=== PATIENT | male | born 1970 | race Caucasian/White ===

== ENCOUNTER 2020-07-31 21:49 | Inpatient (IN) | payer OTHER, SELFPAY ==
[~2020-07-31] VITALS: Ht 190.5 cm; Wt 89.8 kg
--- NOTE | 2020-07-31 21:49 | NUR ---
PT TAKEN TO BED 3 VIA RNEY.
[2020-07-31 21:53] VITALS: BP 127/82
--- NOTE | 2020-07-31 21:53 | NUR ---
50 Y/O MALE BIBA FROM [facility] FOR L SIDED CHEST PAIN SINCE 5PM. PER PT TOOK NITRO 3 TABS @ 7PM WITH NO RELIEF. PT STATES 9/10 SHARP PAIN. DENIES SOB, FEVER, COUGH. MEDHX: HTN, SCHIZOPHRENIA, BIPOLAR, L AKA ALLERGIES: PENICILLIN, COEDINE, SULFA DRUGS, OPIODS
--- NOTE | 2020-07-31 21:59 | NUR ---
EKG BEING PERFORMED AT BEDSIDE. PT PLACED ON CARIDAC MONTIOR.
--- NOTE | 2020-07-31 22:05 | NUR ---
LAB AT BEDSIDE.
[2020-07-31] MEDS ORDERED: ASPIRIN 325 MG TAB ONE (22:09)
[2020-07-31] MEDS ORDERED: ASPIRIN 325 MG TAB PO ONE (22:10)
--- NOTE | 2020-07-31 22:20 | NUR ---
Right forearm 18g initiated and flushable. tolerated well.
[2020-07-31 22:24] LABS: BASOPHILS # (AUTO) 0.2 K/uL (0.00-0.22); BASOPHILS % (AUTO) 1.5 % (0.0-2.0); EOSINOPHILS # (AUTO) 0.8 K/uL (0-0.4); EOSINOPHILS % (AUTO) 7.9 % (0.0-4.0); HEMATOCRIT 37.5 % (36-52); HEMOGLOBIN 12.5 g/dL (12.0-18.0); LYMPHOCYTES # (AUTO) 2.9 K/uL (2.0-11.5); LYMPHOCYTES % (AUTO) 27.1 % (20.5-51.1); MEAN CORPUSCULAR HEMOGLOBIN 27 pg (27-31); MEAN CORPUSCULAR HGB CONC 33 g/dL (33-37); MEAN CORPUSCULAR VOLUME 80.8 fL (80-94); MONOCYTES # (AUTO) 0.9 K/uL (0.8-1.0); MONOCYTES % (AUTO) 8.5 % (1.7-9.3); NEUTROPHILS # (AUTO) 5.8 K/uL (1.8-7.7); PLATELET COUNT (AUTO) 260 K/uL (140-450); RED BLOOD CELL COUNT(AUTO) 4.64 MIL/uL (4.20-6.10); RED CELL DISTRIBUTION WIDTH 17.2 % (11.6-13.7); WHITE BLOOD COUNT (AUTO) 10.6 K/uL (4.8-10.8)
[2020-07-31 22:45] LABS: ALBUMIN 3.5 g/dL (3.4-5.0); ANION GAP 12.6 (8-16); CARBON DIOXIDE 27.5 mmol/L (21-32); POTASSIUM 4.1 mmol/L (3.5-5.1); TOTAL BILIRUBIN 0.2 mg/dL (0.0-1.0)
--- NOTE | 2020-07-31 22:45 | NUR ---
ERMD AT BEDSIDE EVALUATING PT
[2020-07-31] MEDS ORDERED: MORPHINE SULFATE 4 MG/ML SYR IVP STA (22:46)
--- NOTE | 2020-07-31 22:57 | NUR ---
PT STATES HE FEELS NAUSEATED AND DEHYDRATED, ERMD MADE AWARE.
[2020-07-31 23:02] LABS: PROTHROMBIN TIME 9.9 secs (10.8-13.4)
[2020-07-31] MEDS ORDERED: NACL 0.9% 1,000 ML IV ONE (23:10)
[2020-07-31] MEDS ORDERED: ONDANSETRON 4 MG/2 ML VIAL IVP PRN (23:10)
[2020-07-31] MEDS ORDERED: ONDANSETRON 4 MG/2 ML VIAL ONE (23:13)
--- NOTE | 2020-07-31 23:37 | NUR ---
NADEEN SWAB DONE AND SENT TO LAB
[2020-07-31] MEDS ORDERED: DOCU-299 PO (23:55)
[2020-07-31] MEDS ORDERED: [UNRECOGNIZED DRUG - CODE] PO (23:55)
[2020-07-31] MEDS ORDERED: GLYC15SO12 OP (23:55)
[2020-07-31] MEDS ORDERED: METO-485 PO (23:55)
[2020-07-31] MEDS ORDERED: HYDR-3233 PO (23:55)
[2020-07-31] MEDS ORDERED: LORA-476 PO (23:55)
[2020-07-31] MEDS ORDERED: NITR0.4T2 SL (23:55)
[2020-07-31] MEDS ORDERED: OLAN15TA1 PO (23:55)
[2020-07-31] MEDS ORDERED: ACET-2619 PO (23:55)
[2020-07-31] MEDS ORDERED: ESCI10TA PO (23:55)
[2020-07-31] MEDS ORDERED: PANT40EC PO (23:55)
[2020-07-31] MEDS ORDERED: BISA5TAB79 PO (23:55)
--- NOTE | 2020-08-01 01:03 | NUR ---
PT RESTING IN BED, RESPIRATIONS EVEN AND UNLABORED, CHEST RISE IS SYMMETRICAL. WILL CONTINUE TO MONITOR.
--- NOTE | 2020-08-01 01:32 | NUR ---
pt continually pacing up and down in bed stating " My pain is getting bad, I need something for the pain". stated to pt that scheduled meds will be administered when due.
[2020-08-01] MEDS: MORPHINE SULFATE 2 MG/ML SYR IVP PRN ×3 (02:00→18:03)
--- NOTE | 2020-08-01 03:07 | NUR ---
PT RESTING IN BED, RESPIRATIONS EVEN AND UNLABORED, CHEST RISE IS SYMMETRICAL. WILL CONTINUE TO MONITOR.
--- NOTE | 2020-08-01 05:43 | NUR ---
PT RESTING IN BED, RESPIRATIONS EVEN AND UNLABORED, CHEST RISE IS SYMMETRICAL. WILL CONTINUE TO MONITOR.
[2020-08-01 06:00] LABS: BASOPHILS # (AUTO) 0.1 K/uL (0.00-0.22); BASOPHILS % (AUTO) 1.3 % (0.0-2.0); EOSINOPHILS # (AUTO) 0.6 K/uL (0-0.4); EOSINOPHILS % (AUTO) 8.7 % (0.0-4.0); HEMATOCRIT 36.7 % (36-52); HEMOGLOBIN 12.1 g/dL (12.0-18.0); LYMPHOCYTES # (AUTO) 2.3 K/uL (2.0-11.5); LYMPHOCYTES % (AUTO) 30.5 % (20.5-51.1); MEAN CORPUSCULAR HEMOGLOBIN 27 pg (27-31); MEAN CORPUSCULAR HGB CONC 33 g/dL (33-37); MEAN CORPUSCULAR VOLUME 80.4 fL (80-94); MONOCYTES # (AUTO) 0.7 K/uL (0.8-1.0); MONOCYTES % (AUTO) 9.7 % (1.7-9.3); NEUTROPHILS # (AUTO) 3.7 K/uL (1.8-7.7); NEUTROPHILS % (AUTO) 49.8 % (42.2-75.2); PLATELET COUNT (AUTO) 231 K/uL (140-450); RED BLOOD CELL COUNT(AUTO) 4.57 MIL/uL (4.20-6.10); RED CELL DISTRIBUTION WIDTH 17.2 % (11.6-13.7); WHITE BLOOD COUNT (AUTO) 7.5 K/uL (4.8-10.8)
[2020-08-01 06:26] LABS: ANION GAP 12.6 (8-16); CARBON DIOXIDE 26.7 mmol/L (21-32); CREATININE 0.8 mg/dL (0.6-1.3); POTASSIUM 4.3 mmol/L (3.5-5.1)
--- NOTE | 2020-08-01 07:10 | NUR ---
REPORT GIVEN TO BIMAL GONGORA FOR CONTINUITY OF CARE.
--- NOTE | 2020-08-01 07:23 | NUR ---
REPORT RECEIVED, PT INFORMED HE WILL BE GOING TO FLOOR SOON. PT AOX4, BREATHING EVEN AND UNLABORED.
[2020-08-01] MEDS ORDERED: DOCUSATE SODIUM 100 MG GELCAP PO PRN (07:35)
[2020-08-01] MEDS ORDERED: guaiFENesin DM 200/20 MG-10 ML 10 ML UDC PO PRN (07:35)
[2020-08-01] MEDS ORDERED: ONDANSETRON 4 MG/2 ML VIAL IM/IVP PRN (07:35)
[2020-08-01] MEDS ORDERED: POTASSIUM CHLORIDE 10 MEQ TABER PO PRN (07:35)
[2020-08-01] MEDS ORDERED: HYDROcodone/APAP 7.5/325 MG 1 TAB PO PRN (07:35)
[2020-08-01] MEDS ORDERED: LORazepam 1 MG TAB PO PRN (07:40)
[2020-08-01] MEDS ORDERED: NITROGLYCERIN 0.4 MG TAB SL PRN ×2 (07:40→12:40)
--- NOTE | 2020-08-01 07:45 | NUR ---
RECEIVED BEDSIDE REPORT FROM ED NURSE. PT RESTING IN BED. ABLE TO MAKE NEEDS KNOWN. RESPIRATIONS EVEN AND UNLABORED WITH NO SOB OR RESPIRATORY DISTRESS. SKIN WARM AND DRY TO TOUCH. IV SITE IN RFA 18G IS CLEAN, DRY, AND INTACT. MRSA SWAB COLLECTED. WILL CONTINUE TO MONITOR
--- NOTE | 2020-08-01 07:50 | NUR ---
Patient will be admitted to care of Dr Grace. Admited to Tele. Will go to room 105A. Belongings list completed. Report to Karla GONGORA.
[2020-08-01 08:00] VITALS: BP 133/79
[2020-08-01 08:21] LABS: CHOL/HDL RATIO 5.6 (1-4.5); FREE T4 (FREE THYROXINE) 0.79 ng/dL (0.76-1.46); MAGNESIUM 1.9 mg/dL (1.8-2.4); PHOSPHORUS 3.3 mg/dL (2.5-4.9); THYROID STIMULATING HORMONE 2.78 uIU/mL (0.34-3.74)
--- NOTE | 2020-08-01 08:23 | NUR ---
ADMINISTERED SCHED MED PRESCRIBED PER MD ORDER. PT TOLERATED WELL. PT COMPLAINED OF PAIN 10/10. PRN MORPHINE ADMINISTERED PRESCRIBED PER MD ORDER. PT TOLERATED WELL. MEDICATION EDUCATION PERFORMED. PT VERBALIZED UNDERSTANDING. SAFETY MEASURES IN PLACE. WILL CONTINUE TO MONITO
[2020-08-01] MEDS: lisinopriL 5 MG TAB PO SCH (08:26)
[2020-08-01] MEDS: ECOTRIN 81 MG TABEC PO SCH (08:26)
[2020-08-01] MEDS: ESCITALOPRAM 20 MG TAB PO SCH (08:27)
[2020-08-01] MEDS: METOPROLOL 25 MG TAB PO SCH ×2 (08:28→20:54)
[2020-08-01] MEDS: hydrALAZINE 10 MG TAB PO SCH ×2 (08:29→20:53)
[2020-08-01] MEDS: PANTOPRAZOLE 40 MG TABEC PO SCH (08:30)
[2020-08-01] MEDS: OLANZapine 5 MG TAB PO SCH (08:31)
--- NOTE | 2020-08-01 08:40 | NUR ---
PATIENT HAS BEEN SCREENED AND CATEGORIZED MODERATE NUTRITION RISK. PATIENT WILL BE SEEN WITHIN 3-5 DAYS OF ADMISSION. 08/03/20 08/05/[address]
[2020-08-01] MEDS ORDERED: PANTOPRAZOLE 40 MG TABEC PO SCH (09:00)
--- NOTE | 2020-08-01 10:15 | NUR ---
PT RESTING IN BED. ABLE TO MAKE NEEDS KNOWN. RESPIRATIONS EVEN AND UNLABORED WITH NO SOB OR RESPIRATORY DISTRESS. SKIN WARM AND DRY TO TOUCH. WILL CONTINUE TO MONITOR
[2020-08-01] MEDS: ONDANSETRON 4 MG/2 ML VIAL IVP PRN (10:54)
--- NOTE | 2020-08-01 11:06 | NUR ---
PT COMPLAINED OF NAUSEA. PRN ZOFRAN ADMINISTERED PRESCRIBED PER MD ORDER. MEDICATION EDUCATION PERFORMED. PT VERBALIZED UNDERSTANDING. WILL CONTINUE TO MONITOR
[2020-08-01 11:23] LABS: APPEARANCE,URINE CLEAR (CLEAR); BILIRUBIN,URINE NEGATIVE (NEGATIVE); BLOOD, URINE NEGATIVE (NEGATIVE); COLOR,URINE YELLOW (YELLOW); LEUKOCYTE ESTERASE ,URINE NEGATIVE (NEGATIVE); NITRITE, URINE NEGATIVE (NEGATIVE); PH,URINE 5.5 (5.0-9.0); UGLUCOSE NEGATIVE (NEGATIVE)
[2020-08-01 11:56] LABS: BARBITURATE, URINE NEGATIVE ng/ml (NEG <=200); BENZODIAZEPINE, URINE POSITIVE ng/mL (NEG <=200); CANNABINOID, URINE NEGATIVE ng/mL (NEG <=50); COCAINE, URINE NEGATIVE ng/mL (NEG <=300); OPIATE, URINE POSITIVE ng/mL (NEG <=2000); PHENCYCLIDINE SCREEN,URINE NEGATIVE ng/mL (NEG <=25)
[2020-08-01 12:00] VITALS: BP 110/77
--- NOTE | 2020-08-01 12:03 | NUR ---
SOCIAL WORK NOTE: Patient's Orientation Unable To Assess Information Provided By RAFAEL NUNEZ Comments SW WAS UNABLE TO MEET PATIENT AT BEDSIDE DUE TO MEDICAL CONDITION. SW CONTACTED PATIENT'S EMERGENCY CONTACT, BUT NUMBER WAS INCORRECT. [facility]DES CONTACTED [facility] NUNEZ TO COMPLETE ASSESSMENT. Windows Desktop Support, Realtionship and Phone Number CARRI RENO [facility] of Line Leader No Does Patient Have a POLST No Identifying Problems No Social Work Triggers Is A Social Work Consult Needed No Mandate Report Filed No Explanation Of Identifying Problems PATIENT IS A 50-YEAR-OLD MALE ADMITTED FOR CHEST PAIN AND ACS. PATIENT HAS PMHX OF HYPERTENSION. Admitted From Assisted Facility Assisted Facility [facility] Pre-Admission Level Of Functioning Status Assist With ADL Level Of Functioning Comment PER RAFAEL, PATIENT REQUIRES MODERATE ASSISTANCE WITH ALL ADLS. Prior Resources/Services Used In Last 12 Months SNF Rehab/Skilled Prior Resources/Service Comments PATIENT IS SKILLED AND ON A BED HOLD. Prior DME Walker Wheelchair Dialysis Comments N/A Living Situation Lives With Family House Home Support No Caregiver Issues Financial Issues No Known Financial Issue Referral To The Financial Counselor Needed No Factors/Needs SNF/NH Placement Pt/Rep Participated In Discharge Plan Yes Patient/Family Agress With Discharge Plan Yes Discharge Plan Comments TENTATIVE DISCHARGE PLAN IS FOR PATIENT TO RETURN HOME. DC Plan Status Initiated
[2020-08-01] MEDS: HYDROmorphone 1 MG/ML AMP IVP PRN ×2 (14:40→20:50)
--- NOTE | 2020-08-01 14:40 | NUR ---
PT COMPLAINED OF SEVERE PAIN. PRN DILAUDID ADMINISTERED PRESCRIBED PER MD ORDER. PT TOLERATED WELL. MEDICATION EDUCATION PERFORMED. PT VERBALIZED UNDERSTANDING. SAFETY MEASURES IN PLACE. WILL CONTINUE TO MONITOR
[2020-08-01 16:00] VITALS: BP 133/79
[2020-08-01] MEDS: LEVOFLOXACIN 500 MG/D5W PREMIX 100 ML IV SCH (16:00)
--- NOTE | 2020-08-01 16:04 | NUR ---
ADMINISTERED SCHED MED PRESCRIBED PER MD ORDER. PT TOLERATED WELL. MEDICATION EDUCATION PERFORMED. PT VERBALIZED UNDERSTANDING. SAFETY MEASURES IN PLACE. WILL CONTINUE TO MONITOR
[2020-08-01] MEDS ORDERED: ATORVASTATIN 20 MG TAB PO SCH (17:00)
[2020-08-01] MEDS: ATORVASTATIN 20 MG TAB PO SCH (17:08)
--- NOTE | 2020-08-01 17:12 | NUR ---
ADMINISTERED SCHED MED PRESCRIBED PER MD ORDER. PT TOLERATED WELL. MEDICATION EDUCATION PERFORMED. PT VERBALIZED UNDERSTANDING. SAFETY MEASURES IN PLACE. WILL CONTINUE TO MONITOR
--- NOTE | 2020-08-01 18:03 | NUR ---
PT COMPLAINED OF SEVERE PAIN. PRN MORPHINE ADMINISTERED PRESCRIBED PER MD ORDER. PT TOLERATED WELL. MEDICATION EDUCATION PERFORMED. WILL CONTINUE TO MONITOR
--- NOTE | 2020-08-01 19:25 | NUR ---
ENDORSED AT BEDSIDE FOR CONTINUITY OF CARE. PT IS STABLE
--- NOTE | 2020-08-01 19:26 | NUR ---
RECEIVED BEDSIDE REPORT FROM DAY RN. PT IS AAOX4. RESPIRATIONS ARE EQUAL AND UNLABORED ON ROOM AIR. LUNG SOUNDS ARE DIMINISHED AT BASE. SKIN IS INTACT. HX L AKA. BEDREST. IV ON R FA 18G INFUSING NS AT 40ML/H. DX: CP R/O ACS. TROP NEG X3. POC DISCUSSED WITH PT. PT VERBALIZED UNDERSTANDING. CALL LIGHT IS WITHIN REACH. WILL CONTINUE TO MONITOR.
[2020-08-01 20:00] VITALS: BP 101/71
--- NOTE | 2020-08-01 20:50 | NUR ---
VITAL SIGNS ARE WITHIN NORMAL LIMITS. HELD RISA APRESOLINE AND LOPRESSOR D/T DECREASED B/P. ADMINISTERED PRN DILAUDID FOR C/C CP. SAFETY MEASURES ARE IN PLACE. CALL LIGHT IS WITHIN REACH.
[2020-08-01] MEDS: ZOLPIDEM 5 MG TAB PO PRN (20:56)
[2020-08-01] MEDS ORDERED: METOPROLOL 25 MG TAB PO SCH (21:00)
--- NOTE | 2020-08-01 22:10 | NUR ---
ROUNDS MADE. PT IS SLEEPING COMFORTABLY IN BED WITH EYES CLOSED. CHEST RISE AND FALL. CALL LIGHT IS WITHIN REACH.
[2020-08-02] VITALS: BP 124/77
--- NOTE | 2020-08-02 | NUR ---
ROUNDS MADE. PT IS SLEEPING COMFORTABLY IN BED WITH EYES CLOSED. CHEST RISE AND FALL NOTED. CALL LIGHT IS WITHIN REACH.
--- NOTE | 2020-08-02 02:00 | NUR ---
PT IS SLEEPING COMFORTABLY IN BED WITH EYES CLOSED. CHEST RISE AND FALL NOTED. CALL LIGHT IS WITHIN REACH.
[2020-08-02] MEDS: HYDROmorphone 1 MG/ML AMP IVP PRN ×4 (02:45→21:02)
[2020-08-02 04:00] VITALS: BP 103/58
--- NOTE | 2020-08-02 04:10 | NUR ---
VITAL SIGNS ARE WITHIN NORMAL LIMITS. NO S/S OF RESPIRATORY DISTRESS. REMAINS ON 1L NC SAT WELL 98%. ALL NEEDS MET. CALL LIGHT IS WITHIN REACH.
[2020-08-02] MEDS: MORPHINE SULFATE 2 MG/ML SYR IVP PRN ×5 (05:58→22:13)
[2020-08-02] MEDS: ALBUTEROL SULFATE/IPRATROPIU 3 ML SOL IH PRN ×3 (06:34→22:34)
[2020-08-02 07:21] LABS: BASOPHILS # (AUTO) 0.1 K/uL (0.00-0.22); BASOPHILS % (AUTO) 1.1 % (0.0-2.0); EOSINOPHILS # (AUTO) 0.7 K/uL (0-0.4); HEMATOCRIT 35.9 % (36-52); HEMOGLOBIN 11.7 g/dL (12.0-18.0); LYMPHOCYTES # (AUTO) 1.7 K/uL (2.0-11.5); LYMPHOCYTES % (AUTO) 24.5 % (20.5-51.1); MEAN CORPUSCULAR HEMOGLOBIN 26 pg (27-31); MEAN CORPUSCULAR HGB CONC 33 g/dL (33-37); MEAN CORPUSCULAR VOLUME 80.4 fL (80-94); MONOCYTES # (AUTO) 0.7 K/uL (0.8-1.0); MONOCYTES % (AUTO) 9.8 % (1.7-9.3); NEUTROPHILS # (AUTO) 3.8 K/uL (1.8-7.7); NEUTROPHILS % (AUTO) 54.6 % (42.2-75.2); PLATELET COUNT (AUTO) 224 K/uL (140-450); RED BLOOD CELL COUNT(AUTO) 4.46 MIL/uL (4.20-6.10); RED CELL DISTRIBUTION WIDTH 17.3 % (11.6-13.7)
--- NOTE | 2020-08-02 07:25 | NUR ---
RECEIVED REPORT FROM PM RN. PATIENT VERBALIZED CHEST PAIN 9/ BUT TOLERABLE. PT REQUESTED FOR PAIN MED. NO FACIAL GRIMACE NOTED. 73 SR VIA TELE MONITOR. PT IS CALM AND RESTING. WILL CONTINUE TO MONITOR AND WILL MEDICATE PT FOR PAIN.
[2020-08-02 07:26] LABS: ANION GAP 10.8 (8-16); CARBON DIOXIDE 27.8 mmol/L (21-32); CREATININE 0.9 mg/dL (0.6-1.3); POTASSIUM 4.6 mmol/L (3.5-5.1)
--- NOTE | 2020-08-02 07:30 | NUR ---
GAVE BEDSIDE REPORT TO DAY RN. PT ENDORSED IN STABLE CONDITION.
[2020-08-02 08:00] VITALS: BP 143/72
[2020-08-02 08:08] LABS: T4 (THYROXINE) 5.9 ug/dL (4.5-12.0)
[2020-08-02] MEDS ORDERED: lisinopriL 5 MG TAB PO SCH (09:00)
[2020-08-02] MEDS ORDERED: ECOTRIN 81 MG TABEC PO SCH (09:00)
[2020-08-02] MEDS: OLANZapine 5 MG TAB PO SCH (09:05)
[2020-08-02] MEDS: ESCITALOPRAM 20 MG TAB PO SCH (09:06)
[2020-08-02] MEDS: PANTOPRAZOLE 40 MG TABEC PO SCH (09:06)
[2020-08-02] MEDS: ECOTRIN 81 MG TABEC PO SCH (09:07)
[2020-08-02] MEDS: METOPROLOL 25 MG TAB PO SCH ×2 (09:07→21:01)
[2020-08-02] MEDS: lisinopriL 5 MG TAB PO SCH (09:10)
[2020-08-02] MEDS: hydrALAZINE 10 MG TAB PO SCH ×2 (09:11→21:00)
[2020-08-02] MEDS: ONDANSETRON 4 MG/2 ML VIAL IVP PRN (11:10)
[2020-08-02 12:00] VITALS: BP 117/71
--- NOTE | 2020-08-02 12:00 | NUR ---
PT IS RESTING AND CALM. NO S/S OF DISTRESS. KEPT PT ON FALL PRECAUTION. WILL CONTINUE TO MONITOR.
[2020-08-02] MEDS: LEVOFLOXACIN 500 MG/D5W PREMIX 100 ML IV SCH (15:58)
[2020-08-02 16:00] VITALS: BP 99/60
[2020-08-02] MEDS: ATORVASTATIN 20 MG TAB PO SCH (17:04)
--- NOTE | 2020-08-02 19:20 | NUR ---
ENDORSED PT TO PM RN. POC REPORTED. PT HAS NO S/S OF DISTRESS. NO CHANGE OF CONDITION.
[2020-08-02 20:00] VITALS: BP 97/54
--- NOTE | 2020-08-02 20:45 | NUR ---
PT SLEEPING COMFORTABLY AT THIS TIME NO DISTRESS NOTED WILL CONT TO MONITOR
[2020-08-02] MEDS: ZOLPIDEM 5 MG TAB PO PRN (22:14)
[2020-08-03] VITALS: BP 99/50
[2020-08-03] MEDS: HYDROmorphone 1 MG/ML AMP IVP PRN ×2 (03:02→09:18)
[2020-08-03 04:00] VITALS: BP 104/61
[2020-08-03] MEDS: MORPHINE SULFATE 2 MG/ML SYR IVP PRN ×2 (04:01→10:29)
[2020-08-03] MEDS: ONDANSETRON 4 MG/2 ML VIAL IVP PRN (04:31)
[2020-08-03] MEDS: ALBUTEROL SULFATE/IPRATROPIU 3 ML SOL IH PRN (04:45)
--- NOTE | 2020-08-03 04:59 | NUR ---
Patient notes moisture on intravenous push of zofran. New 20 gauge intravenous start complete at this time on right forearm. Patient tolerates well. Reynaldo Samuels RN
[2020-08-03 07:24] LABS: ANION GAP 10.2 (8-16); CARBON DIOXIDE 30.7 mmol/L (21-32); POTASSIUM 4.9 mmol/L (3.5-5.1)
[2020-08-03 07:25] LABS: BASOPHILS # (AUTO) 0.1 K/uL (0.00-0.22); BASOPHILS % (AUTO) 0.8 % (0.0-2.0); EOSINOPHILS # (AUTO) 0.8 K/uL (0-0.4); EOSINOPHILS % (AUTO) 10.9 % (0.0-4.0); HEMATOCRIT 37.1 % (36-52); HEMOGLOBIN 12.2 g/dL (12.0-18.0); LYMPHOCYTES # (AUTO) 1.9 K/uL (2.0-11.5); LYMPHOCYTES % (AUTO) 24.8 % (20.5-51.1); MEAN CORPUSCULAR HEMOGLOBIN 27 pg (27-31); MEAN CORPUSCULAR HGB CONC 33 g/dL (33-37); MEAN CORPUSCULAR VOLUME 80.7 fL (80-94); MONOCYTES # (AUTO) 0.7 K/uL (0.8-1.0); MONOCYTES % (AUTO) 9.7 % (1.7-9.3); NEUTROPHILS # (AUTO) 4.1 K/uL (1.8-7.7); NEUTROPHILS % (AUTO) 53.8 % (42.2-75.2); PLATELET COUNT (AUTO) 212 K/uL (140-450); RED CELL DISTRIBUTION WIDTH 17.1 % (11.6-13.7); WHITE BLOOD COUNT (AUTO) 7.5 K/uL (4.8-10.8)
--- NOTE | 2020-08-03 07:40 | NUR ---
Handoff with FRANSISCA Boothe. Reynaldo Samuels, FRANSISCA Addendum: 08/03/20 at 0743 by Agency Neal GONGORA RN Disregard above note, incorrect patient
--- NOTE | 2020-08-03 07:43 | NUR ---
Handoff with FRANSISCA Albert. Reynaldo Samuels RN
--- NOTE | 2020-08-03 07:46 | NUR ---
RECEIVED PT FROM PHOTOENGRAVER APPRENTICE NURSE, PT IS AWAKE AND LYING ON THE BED WITH SIDE RAILS UP AND CALL LIGHT WITHIN REACH, IV LINE NOTED ON THE RFA G. 20 ON SALINE LOCK, SAFETY AND FALL PRECAUTION IN PLACE, COMMODE ON THE BEDSIDE, PT IS ON RA, LEFT BKA NOTED, AND NO SIGN OF DISTRESS NOTED, WILL MONITOR PT.
[2020-08-03 08:00] VITALS: BP 119/73
--- NOTE | 2020-08-03 08:12 | NUR ---
PT WAS GIVEN SCHEDULED AM MEDICATIONS ORALLY AND IV PUSH, TOLERATED, BP IS 119/73, PULSE IS 82 MANUALLY CHECKED, O2 SATURATION IS AT 94% ON RA, RESPIRATION IS AT 18/MIN, NO SIGN OF DISTRESS NOTED AND WILL MONITOR PT. Addendum: 08/03/20 at 0933 by Bety Kilpatrick RN MEDICATION ADMINISTRATION TIME IS 911.
[2020-08-03] MEDS: hydrALAZINE 10 MG TAB PO SCH (09:00)
[2020-08-03] MEDS: OLANZapine 5 MG TAB PO SCH (09:12)
[2020-08-03] MEDS: PANTOPRAZOLE 40 MG TABEC PO SCH (09:13)
[2020-08-03] MEDS: ECOTRIN 81 MG TABEC PO SCH (09:13)
[2020-08-03] MEDS: lisinopriL 5 MG TAB PO SCH (09:14)
[2020-08-03] MEDS: ESCITALOPRAM 20 MG TAB PO SCH (09:15)
[2020-08-03] MEDS: METOPROLOL 25 MG TAB PO SCH (09:16)
--- NOTE | 2020-08-03 09:18 | NUR ---
PT C/O PAIN RATE OF 10/10 AND WAS MEDICATED WITH DILAUDID, BP IS 119/73, PULSE IS 82, WILL MONITOR PT.
--- NOTE | 2020-08-03 10:29 | NUR ---
PT C/O PAIN RATE OF 8/10 AND WAS MEDICATED WITH MORPHINE IV PUSH, V/S TAKEN, BP IS 127/71, PULSE IS 62, O2 SATURATION IS AT 96% ON RA, NO SIGN OF DISTRESS NOTED AND WILL MONITOR PT.
[2020-08-03] MEDS ORDERED: ATOR20TA PO (11:06)
[2020-08-03 12:00] VITALS: BP 106/65
[2020-08-03] MEDS ORDERED: MORPHINE SULFATE 4 MG/ML SYR IVP PRN (12:25)
--- NOTE | 2020-08-03 13:41 | NUR ---
DISCHARGE PLANNING: [facility] FAXED PATIENT'S CLINICALS TO [facility] TO ARRANGE FOR PATIENT TO BE TRANSFERRED BACK TO [facility]. LURDES WAS CONTACTED BY [facility] WHO PROVIDED ROOM 6B FOR PATIENT UNDER ACCEPTING PHYSICIAN DR. COLLAZO. FRANKLIN STATED SHE WOULD CONTACT LURDES WITH ETA FOR TRANSPORTATION. FRANKLIN PROVIDED CONTACT NUMBER [phone] FOR REPORT. LURDES WILL AWAIT [facility]'S CALL FOR TRANSPORTATION ETA. NURSE WAS NOTIFIED. Addendum: 08/03/20 at 1357 by Devan Bolton SS [facility]ANKLIN CONTACTED [facility] REGARDING ETA FOR PATIENT'S BUSINESS RULES DEVELOPER. FRANKLIN STATED PATIENT WILL BE PICKED UP AT 3-4PM THROUGH [employer]. FRANSISCA RUTH WAS NOTIFIED.
--- NOTE | 2020-08-03 14:10 | NUR ---
CALLED [facility] AND GAVE REPORT TO FRANSISCA WADDELL, AND INFORMED RN THAT PT WILL BE GOING TO [facility] UNDER THE SERVICE OF DR. COLLAZO, AND MAIL RIDER TIME FOR PT BY [facility] IS AT 1500, RN WAS GIVEN REPORTS REGARDING PT'S CARE MANAGEMENT, AND MD RECOMMENDATION THAT PT SHOULD HAVE AN OUTPATIENT STRESS TEST AND ECHOCARDIOGRAM AND MUST SEE HIS PCP WITHIN 3 DAYS OF DISCHARGE AND RN VERBALIZED UNDERSTANDING.
--- NOTE | 2020-08-03 15:15 | NUR ---
DISCHARGED PT TO [facility] WITH [facility], IV LINE AND ARM BAND REMOVED, PT IS STABLE AT THIS TIME.
== END 2020-08-03 15:15 | DRG 206 ==
LOC: MED 21:49 → MTU 23:20
PROVIDERS: ADMIT Family Medicine; ATTEND Family Medicine
DX: M94.0 Chondrocostal junction syndrome [Tietze] (principal); Z20.828 Contact with and (suspected) exposure to other viral communicable diseases; I10 Essential (primary) hypertension; F20.9 Schizophrenia, unspecified; F31.9 Bipolar disorder, unspecified; G62.9 Polyneuropathy, unspecified; F17.210 Nicotine dependence, cigarettes, uncomplicated; E78.2 Mixed hyperlipidemia; E83.42 Hypomagnesemia; E86.0 Dehydration; K21.9 Gastro-esophageal reflux disease without esophagitis; Z88.5 Allergy status to narcotic agent; Z88.0 Allergy status to penicillin; Z88.2 Allergy status to sulfonamides; Z88.8 Allergy status to other drugs, medicaments and biological substances; Z86.718 Personal history of other venous thrombosis and embolism; Z89.612 Acquired absence of left leg above knee; Z79.899 Other long term (current) drug therapy; Z90.49 Acquired absence of other specified parts of digestive tract; Z82.49 Family history of ischemic heart disease and other diseases of the circulatory system; Z71.6 Tobacco abuse counseling
CPT/HCPCS: 36415; 71045; 80048; 80053; 80305; 81003; 82150; 83036; 83690; 83735; 83880; 84100; 84436; 84439; 84443; 84479; 84484; 85025; 85610; 85730; 87081; 93005; 94640; 96361; 96374; 99285; J1170; J1956; J2270; J2405; J7030

== ENCOUNTER 2020-08-17 02:46 | Emergency (ER) | payer OTHER, SELFPAY ==
[~2020-08-17] VITALS: Ht 170.2 cm; Wt 72.6 kg
[~2020-08-17 02:46] MED LIST: ACET-2619 PO; ATOR20TA PO; BISA5TAB79 PO; DOCU-299 PO; ESCI10TA PO; GLYC15SO12 OP; LORA-476 PO; METO-485 PO; NITR0.4T2 SL; OLAN15TA1 PO; PANT40EC PO; [UNRECOGNIZED DRUG - CODE] PO
[2020-08-17 02:50] VITALS: BP 116/73
--- NOTE | 2020-08-17 03:00 | NUR ---
PT TAKEN TO BED 7
[2020-08-17] MEDS ORDERED: IBUP-1842 PO (03:01)
[2020-08-17] MEDS ORDERED: ZOLP5TAB1 PO (03:01)
[2020-08-17] MEDS ORDERED: ASPIRIN 325 MG TAB PO ONE (03:10)
--- NOTE | 2020-08-17 03:17 | NUR ---
communications tech at bedside for blood draw.
--- NOTE | 2020-08-17 03:31 | NUR ---
50 year old male coming from [facility] for c/o left chest wall pain that started last night at 1900. describes the pain as sharp and stabbing 9/10. + SOB. pt is a/o x 4. cbl sounds. RRR. observed Left AKA. denies any other s/sx. denies any injury or trauma. negative for covid symptoms. pmhx: Left AKA, Fibromyalgia, neuropathy, HLD, HTN, bipolar, schizophrenia allx: PCN, sulfa, norco, codeine
[2020-08-17 03:39] LABS: BASOPHILS # (AUTO) 0.1 K/uL (0.00-0.22); BASOPHILS % (AUTO) 0.7 % (0.0-2.0); EOSINOPHILS # (AUTO) 0.8 K/uL (0-0.4); EOSINOPHILS % (AUTO) 8.9 % (0.0-4.0); HEMATOCRIT 36.8 % (36-52); HEMOGLOBIN 12.2 g/dL (12.0-18.0); LYMPHOCYTES # (AUTO) 2.3 K/uL (2.0-11.5); LYMPHOCYTES % (AUTO) 26.5 % (20.5-51.1); MEAN CORPUSCULAR HEMOGLOBIN 27 pg (27-31); MEAN CORPUSCULAR HGB CONC 33 g/dL (33-37); MEAN CORPUSCULAR VOLUME 80.6 fL (80-94); MONOCYTES % (AUTO) 10.8 % (1.7-9.3); NEUTROPHILS # (AUTO) 4.7 K/uL (1.8-7.7); NEUTROPHILS % (AUTO) 53.1 % (42.2-75.2); PLATELET COUNT (AUTO) 190 K/uL (140-450); RED BLOOD CELL COUNT(AUTO) 4.56 MIL/uL (4.20-6.10); RED CELL DISTRIBUTION WIDTH 17.4 % (11.6-13.7); WHITE BLOOD COUNT (AUTO) 8.8 K/uL (4.8-10.8)
[2020-08-17 03:56] LABS: ALBUMIN 3.7 g/dL (3.4-5.0); ANION GAP 13.6 (8-16); CARBON DIOXIDE 29.7 mmol/L (21-32); CREATININE 0.8 mg/dL (0.6-1.3); POTASSIUM 4.3 mmol/L (3.5-5.1); TOTAL BILIRUBIN 0.2 mg/dL (0.0-1.0)
[2020-08-17] MEDS ORDERED: KETOROLAC 30 MG/ML VIAL IM ONE (04:50)
[2020-08-17] MEDS ORDERED: KETOROLAC 30 MG/ML VIAL ONE (04:51)
--- NOTE | 2020-08-17 05:15 | NUR ---
PT REFUSING TREATMENT AND REQUESTING TO GO BACK TO FACILITY.
--- NOTE | 2020-08-17 07:17 | NUR ---
REPORT GIVEN TO FRANSISCA WALLIS FOR CONTINUITY OF CARE.
--- NOTE | 2020-08-17 07:45 | NUR ---
PT ALERT AND AWAKE, BREATHING EVEN AND UNLABORED. NO DISTRESS NOTED.
--- NOTE | 2020-08-17 08:24 | NUR ---
[facility] CALLED REGARDING PT STATUS AND HE WILL BE RETURNING TO FACILITY TO [facility] SOON.
[2020-08-17 09:00] VITALS: BP 129/63
--- NOTE | 2020-08-17 09:00 | NUR ---
Patient discharged with v/s stable. Written and verbal after care instructions about chest pain given and explained. Patient verbalized understanding. Ambulatory with steady gait. All questions addressed prior to discharge. Advised to follow up with PMD.
== END 2020-08-17 09:00 | disposition home or self-care (01) ==
LOC: MED 02:46
DX: R07.89 Other chest pain (principal); R06.02 Shortness of breath; R00.2 Palpitations
CPT/HCPCS: 36415; 71045; 80053; 84484; 85025; 93005; 99285; J1885